=== PATIENT | male | born 1950 | race Caucasian/White ===

== ENCOUNTER 2019-10-06 10:28 | Emergency (ER) | payer MEDICARE ==
[~2019-10-06] VITALS: Ht 162.6 cm; Wt 100.0 kg
[2019-10-06] MEDS ORDERED: NAPROXEN375 MG PO (12:21)
[2019-10-06 12:30] VITALS: BP 149/74
== END 2019-10-06 12:30 | disposition home or self-care (01) ==
LOC: ED 10:28
DX: M19.011 Primary osteoarthritis, right shoulder (principal); I10 Essential (primary) hypertension